=== PATIENT | female | born 1960 | race Caucasian/White ===

== ENCOUNTER 2017-09-08 20:44 | Emergency (ER) | payer BC ==
[2017-09-08 21:02] VITALS: BP 134/65
--- NOTE | 2017-09-08 21:16 | UC ---
Skin Complaint HPI - HPI Summary HPI Summary: 57 y/o female presents to the urgent care c/o of left shoulder and upper arm rash w/ itchiness for the past 2 weeks. Pt reports she got a sunburn at the beginning of symptoms, but rash has worsen with the days. Pt has also changed her detergent to wash her clothes and thinks it has worsen her rash. Pt has applied Aloe w/o any improvement. Pt denies fever, drainage, SOB, hoarseness, chest pain, abdominal pain, N/V/D. - History of Current Complaint Chief Complaint: UCSkin Time Seen by Provider: 09/08/17 21:14 Stated Complaint: LEFT ARM (ITCH) Hx Obtained From: Patient Hx Last Menstrual Period: 02/09/12 Onset/Duration: Sudden Onset, Lasting Weeks - 2 weeks, Worse Since - 1 week Skin Exposure Onset/Duration: Weeks Ago - 2 weeks Timing: Constant Onset Severity: Mild Current Severity: Moderate Pain Intensity: 0 Pain Scale Used: 0-10 Numeric Location: Diffuse - left upper arm and shoulder Character: Pruritus, Redness Aggravating Factor(s): Touch Alleviating Factor(s): Cold Associated Signs & Symptoms: Positive: Rash. Negative: Difficulty Breathing, Fever, Chills, Hoarseness, Throat Tightening Related History: Possible Reaction to: Environmental Exposure - Allergy/Home Medications Allergies/Adverse Reactions: Allergies Allergy/AdvReac Type Severity Reaction Status Date / Time No Known Allergies Allergy Verified 05/16/14 12:49 Review of Systems Constitutional: Negative Skin: Rash - left shoudler and upper arm redness w/ itchiness Eyes: Negative ENT: Negative Respiratory: Negative Cardiovascular: Negative Gastrointestinal: Negative Genitourinary: Negative Motor: Negative Neurovascular: Negative Musculoskeletal: Negative Neurological: Negative Psychological: Negative Is Patient Immunocompromised?: No All Other Systems Reviewed And Are Negative: Yes PMH/Surg Hx/FS Hx/Imm Hx Previously Healthy: Yes - Pt denies PMHX - Surgical History Surgical History: Yes Surgery Procedure, Year, and Place: 1986 - Family History Known Family History: Positive: Cardiac Disease - Social History Occupation: Employed Full-time Lives: With Family Alcohol Use: Rare Substance Use Type: None Smoking Status (MU): Never Smoked Tobacco Physical Exam - Summary Physical Exam Summary: Vital Signs Reviewed: Yes General: well developed, well nourished female sitting in the examining table w/ o any apparent distress. Eyes: Positive: Conjunctiva Clear - PERRLA, EOMI ENT: Positive: Normal ENT inspection, Hearing grossly normal, Pharynx normal, TMs normal Neck: Positive: Supple, Nontender, No Lymphadenopathy Respiratory: Positive: Chest nontender, Lungs clear, Normal breath sounds Cardiovascular: Positive: RRR, No Murmur, Pulses Normal Abdomen Description: Positive: Nontender, No Organomegaly, Soft. Negative: CVA Tenderness (R), CVA Tenderness (L) Bowel Sounds: Positive: Present Musculoskeletal: Positive: Strength Intact, ROM Intact, No Edema Neurological Exam: Normal Psychological Exam: Normal Skin: Positive: rashes - Positive erythematous eruption w/ discrete scattered papules, some w/ signs of moderate excoriation, no drainage or swelling observed , warm to touch, FROM of left arm sensation intact , brisk capillary refill, pulses WNL. Triage Information Reviewed: Yes Vital Signs: Initial Vital Signs Temp 98.0 F 09/08/17 20:57 Pulse 69 09/08/17 20:57 Resp 16 09/08/17 20:57 BP 134/65 09/08/17 20:57 Pulse Ox 100 09/08/17 20:57 Course/Dx - Course Course Of Treatment: 57 y/o female presents to the urgent care c/o of left shoulder and upper arm rash w/ itchiness for the past 2 weeks. Pt reports she got a sunburn at the beginning of symptoms, but rash has worsen with the days. Pt has also changed her detergent to wash her clothes and thinks it has worsen her rash. Pt has applied Aloe w/o any improvement. Pt denies fever, drainage, SOB, hoarseness, chest pain, abdominal pain, N/V/D. Hx obtained. Pt w/ left shoulder and upperarm contact dermatitis on examination. Pt Given Prednisone PO by nurse. Pt tolerated well medication. Pt RX Prednisone PO taper dose, Caladryl topical lotion, Benadryl PO to alleviate symptoms. Advised to f/u w/ Deramtologist DR Hernandez if not improvement of symptoms. D/C instructions explained. Pt understood and agreed w/ plan of care and left the clinic ambulating and hemodynamically stable. - Differential Diagnoses - Skin Complaint Differential Diagnoses: Abscess, Allergic Reaction, Contact Dermatitis, Local Allergic Reaction, MRSA, Tinea, Urticaria - Diagnoses Provider Diagnoses: 1- left upper arm contact dermatitis Discharge - Sign-Out/Discharge Documenting (check all that apply): Patient Departure - D/C home - Discharge Plan Condition: Stable Disposition: HOME Prescriptions: Calamine/Pramoxine LOTION* [Caladryl LOTION*] 1 applic .SEE ORDER BID PRN #1 btl PRN Reason: Rash diPHENhydraMINE PO* [Benadryl PO 25 MG TAB*] 25 mg PO Q6H PRN #20 tab PRN Reason: pruritus Hydrocortisone 1% CREAM* [Hytone Cream 1%*] 1 applic TOPICAL BID #1 tube predniSONE TAB* [Deltasone 20 MG TAB*] 20 mg PO DAILY #8 tab Patient Education Materials: Acute Rash (ED) Referrals: [facility] [place] [Outside] - If Needed Braydon Hernandez MD [Medical Doctor] - If Needed Additional Instructions: 1-Please Start taking Prednisone PO taper dose starting tomorrow. first loading dose given today at the clinic. 2- Take Benadryl PO to alleviate itchiness. Apply topical creams as directed. Avoid exposure to the sun. 3-If symptoms do not improve or worsen please f/u with your PCP or [employer] DR Hernandez in 3-4 days for further evaluation and treatment. 4-Please stop using the New detergent to wash your clothes. - Billing Disposition and Condition Condition: STABLE Disposition: Home Attestation Statement User Type: Provider - I was available for consult. This patient was seen by the J[facility]. The patient was not presented to, seen by, or examined by me. -Eliza
[2017-09-08] MEDS ORDERED: Hydrocortisone 1% CREAM* 30 GM TUBE TOPICAL ONE (21:33)
[2017-09-08] MEDS ORDERED: predniSONE TAB* 20 MG PO ONE (21:33)
== END 2017-09-08 21:49 | disposition home or self-care (01) ==
LOC: UCCORT 20:44
DX: L25.9 Unspecified contact dermatitis, unspecified cause (principal)
CPT/HCPCS: 99212; G0463; J7512

== ENCOUNTER 2018-06-17 16:16 | Emergency (ER) | payer BC ==
[2018-06-17 16:37] VITALS: BP 126/83
--- NOTE | 2018-06-17 16:50 | UC ---
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 ?: No Onset/Duration: Sudden Onset, Lasting Weeks Severity Initially: Mild Severity Currently: Mild Pain Intensity: 3 Mechanism Of Injury: Direct Blow Aggravating Factor(s): Nothing Alleviating factor(s): Nothing - Allergies/Home Medications Allergies/Adverse Reactions: Allergies Allergy/AdvReac Type Severity Reaction Status Date / Time No Known Allergies Allergy Verified 06/17/18 16:37 Home Medications: Home Medications NK [No Home Medications Reported] 06/17/18 [History Confirmed 06/17/18] PMH/Surg Hx/FS Hx/Imm Hx Previously Healthy: No - Surgical History Surgical History: Yes Surgery Procedure, Year, and Place: 1986 - Family History Known Family History: Positive: Cardiac Disease - Social History Alcohol Use: Rare Substance Use Type: None Smoking Status (MU): Never Smoked Tobacco Review of Systems All Other Systems Reviewed And Are Negative: Yes Constitutional: Positive: Negative Skin: Positive: Negative Eyes: Positive: Negative ENT: Positive: Negative Respiratory: Positive: Negative Cardiovascular: Positive: Negative Gastrointestinal: Positive: Negative Genitourinary: Positive: Negative Motor: Positive: Negative Neurovascular: Positive: Negative Musculoskeletal: Positive: Arthralgia, Myalgia Neurological: Positive: Negative Psychological: Positive: Negative Is Patient Immunocompromised?: No Physical Exam Triage Information Reviewed: Yes Appearance: Well-Appearing, Well-Nourished, Pain Distress Vital Signs: Initial Vital Signs Temp 98.4 F 06/17/18 16:31 Pulse 63 06/17/18 16:31 Resp 16 06/17/18 16:31 BP 126/83 06/17/18 16:31 Pulse Ox 100 06/17/18 16:31 Vital Signs Reviewed: Yes Eye Exam: Normal ENT Exam: Normal ENT: Positive: Pharynx normal, TMs normal Dental Exam: Normal Neck exam: Normal Respiratory Exam: Normal Respiratory: Positive: Chest non-tender, Lungs clear, Normal breath sounds Cardiovascular Exam: Normal Abdominal Exam: Normal Bowel Sounds: Positive: Present Musculoskeletal Exam: Normal Neurological Exam: Normal Psychological Exam: Normal Skin Exam: Normal Truncal Trauma Course/Dx - Course Course Of Treatment: history obtained, exam performed ,meds reviewed, ROM assessed, talked with patient about whether or not to xray, we agreed it was not necessary at this point. - Differential Dx/Diagnosis Differential Diagnosis/HQI/PQRI: Rib Fracture Provider Diagnosis: Contusion of rib on right side Discharge - Sign-Out/Discharge Documenting (check all that apply): Patient Departure All imaging exams completed and their final reports reviewed: No Studies - Discharge Plan Condition: Stable Disposition: HOME Patient Education Materials: Rib Contusion (ED) Referrals: No Primary Care Phys,NOPCP [Primary Care Provider] - Additional Instructions: 1. continue with the ibuprofen 2. heat and stretch 3. Epsom salt baths to help with soreness. 4. Follow up if not improving in the next few weeks. - Billing Disposition and Condition Condition: STABLE Disposition: Home - Attestation Statements Provider Attestation: I was available for consult. This patient was seen by the J[facility]. The patient was not presented to, seen by, or examined by me. -Eliza
== END 2018-06-17 16:56 | disposition home or self-care (01) ==
LOC: UCCORT 16:16
DX: S20.211A Contusion of right front wall of thorax, initial encounter (principal); W07.XXXA Fall from chair, initial encounter; M79.10 Myalgia, unspecified site; X58.XXXA Exposure to other specified factors, initial encounter
CPT/HCPCS: 99211; G0463

== ENCOUNTER 2018-09-21 17:25 | Emergency (ER) | payer BC ==
[2018-09-21 17:35] VITALS: BP 131/67
--- NOTE | 2018-09-21 18:01 | UC ---
Back Pain HPI - HPI Summary HPI Summary: 58-year-old woman comes in with a chief complaint of low back pain. She describes it as in the low back but sometimes it radiates around the right flank into the pelvic area. She occasionally has pelvic pain which feels like she's can have her menstrual cycle but she has not had her menstrual cycle and years. She's also had increased urinary frequency. Denies any dysuria denies any fevers or chills. Denies any upper abdominal pain. The pain waxes and wanes on its own accord. Twisting turning bending does not make the pain any better or worse. Denies any change in bowel movements. No change in appetite. Patient's had a in the past otherwise no prior abdominal surgeries. 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 Pain Intensity: 7 - Allergies/Home Medications Allergies/Adverse Reactions: Allergies Allergy/AdvReac Type Severity Reaction Status Date / Time No Known Allergies Allergy Verified 09/21/18 17:35 Home Medications: Home Medications Ibuprofen TAB* [Motrin TAB* 800 MG] 800 mg PO ONCE 09/21/18 [History Confirmed 09/21/18] PMH/Surg Hx/FS Hx/Imm Hx Previously Healthy: Yes - Surgical History Surgical History: Yes Surgery Procedure, Year, and Place: 1986 - Family History Known Family History: Positive: Cardiac Disease - Social History Alcohol Use: Rare Substance Use Type: None Smoking Status (MU): Never Smoked Tobacco Review of Systems All Other Systems Reviewed And Are Negative: Yes Constitutional: Positive: Negative Skin: Positive: Negative Eyes: Positive: Negative ENT: Positive: Negative Respiratory: Positive: Negative Cardiovascular: Positive: Negative Gastrointestinal: Positive: Other - SEE HPI Genitourinary: Positive: Frequency, Other - SEE HPI Motor: Positive: Negative Neurovascular: Positive: Negative Musculoskeletal: Positive: Negative Neurological: Positive: Negative Psychological: Positive: Negative Is Patient Immunocompromised?: No Physical Exam Triage Information Reviewed: Yes Appearance: Well-Appearing, No Pain Distress, Well-Nourished Vital Signs: Initial Vital Signs Temp 97.5 F 09/21/18 17:31 Pulse 63 09/21/18 17:31 Resp 16 09/21/18 17:31 BP 131/67 09/21/18 17:31 Pulse Ox 100 09/21/18 17:31 Vital Signs Reviewed: Yes Eye Exam: Normal Eyes: Positive: Conjunctiva Clear Neck: Positive: Supple Respiratory: Positive: Lungs clear, Normal breath sounds, No respiratory distress Cardiovascular: Positive: RRR Abdomen Description: Positive: Nontender, Other: - Nontender to palpation in the back. Patient localizes the pain into the lower lumbar sacral area and being worse on the right side. Bowel Sounds: Positive: Present Musculoskeletal: Positive: Strength Intact, ROM Intact Neurological Exam: Normal Neurological: Positive: Alert, Muscle Tone Normal Psychological: Positive: Age Appropriate Behavior Skin Exam: Normal Back Pain Course/Dx - Course Course Of Treatment: To accommodation of the right flank pain pelvic pain and hematuria and/or lack of timely laboratory blood work here in the clinic I recommended further evaluation in the emergency department. I discussed the case with Shereen in the [place] emergency department. Patient will be going by POV. - Differential Dx/Diagnosis Provider Diagnosis: Right flank pain, Pelvic pain in female, Hematuria Discharge - Sign-Out/Discharge Documenting (check all that apply): Patient Departure All imaging exams completed and their final reports reviewed: No Studies - Discharge Plan Condition: Stable Disposition: HOME-RECOMMEND TO ED Patient Education Materials: Hematuria (ED), Pelvic Pain in Women (ED), Flank Pain (ED) Referrals: [facility] [place] [Outside] Additional Instructions: GO DIRECTLY TO THE EMERGENCY DEPARTMENT FOR FURTHER EVALUATION OF YOUR RIGHT FLANK AND PELVIC PAIN AND BLOOD IN YOUR URINE. - Billing Disposition and Condition Condition: STABLE Disposition: Home-Recommend to ED
== END 2018-09-21 18:06 | disposition home health service (06) ==
LOC: UCCORT 17:25
DX: R10.9 Unspecified abdominal pain (principal); R10.2 Pelvic and perineal pain; R31.9 Hematuria, unspecified
CPT/HCPCS: 81003; 99212; G0463